=== PATIENT | female | born 1955 | race Caucasian/White ===

== ENCOUNTER 2022-06-21 06:01 | Day surgery (SDC) | payer MEDICARE ==
[2022-06-21] MEDS ORDERED: Lactated Ringers 1,000 ML IV SCH (06:30)
[2022-06-21] MEDS ORDERED: Xylocaine-Mpf 2% 5 Ml Vial ONE (07:51)
[2022-06-21] MEDS ORDERED: DIPRIVAN 200 MG/20 ML IV ONE ×2 (07:51→08:16)
[2022-06-21] MEDS ORDERED: ATROPINE SULFATE 1MG ONE (08:07)
[2022-06-21 08:55] VITALS: BP 149/94; PULSE 66; O2SAT 94
--- NOTE | 2022-06-21 12:59 | OP ---
SURGERY DATE/TIME: 06/21/2022 0753 PREOPERATIVE DIAGNOSIS: Screening exam. POSTOPERATIVE DIAGNOSIS: Small polyps in the sigmoid colon. PROCEDURE: Colonoscopy with cold forceps biopsy. SURGEON: Dr. Gabino Garvey. ANESTHESIA: MAC. Medications given by anesthesia department. HISTORY: The patient is a 67-year-old white female presenting now for her first screening colonoscopy. The patient was appraised of the risks of the procedure including the risk of perforation, phlebitis, untoward reaction to medication, bleeding and missed lesions. The patient verbalized her understanding and desired to have the procedure performed. DESCRIPTION OF PROCEDURE: The patient was given the medications by the anesthesia department. She had continuous pulse oximetry, ECG monitoring, intermittent blood pressure monitoring and tidal CO2 monitoring during the examination. She was placed in the left lateral decubitus position. A digital rectal examination was performed and revealed normal anal sphincter tone and no masses. The flexible Olympus pediatric colonoscope was used to intubate the rectum. A view of the colon was developed sequentially to the cecum. Upon insertion and withdrawal was noted a small polyp that appeared to be more hyperplastic in the sigmoid colon and was biopsied using cold biopsy technique to determine the nature of the lesion. The scope was removed from the patient who tolerated the procedure well and was sent back to OP recovery in good condition. The prep was noted to be fair to good.
== END 2022-06-21 09:05 | disposition home or self-care (01) ==
LOC: SDC 06:01
PROVIDERS: ATTEND Family Medicine
DX: Z12.11 Encounter for screening for malignant neoplasm of colon (principal); D12.5 Benign neoplasm of sigmoid colon
CPT/HCPCS: J0461; J2704